=== PATIENT | female | born 1965 | race African-American/Black ===

== ENCOUNTER 2016-11-07 07:48 | Emergency (ER) | payer BC ==
[2016-11-07 08:01] VITALS: BP 135/76; PULSE 99; TEMP 98.5; BMI 30.8
--- NOTE | 2016-11-07 08:34 | PDOC ---
History of Present Illness - General Chief Complaint: Pain Stated Complaint: RIGHT PINKY TOE PAIN Time Seen by Provider: 11/07/16 08:11 History Source: Patient Exam Limitations: No Limitations - History of Present Illness Initial Comments: 11/07/16 08:38 51 yr female with pain to right little toe for one week with swelling to the top of foot and warm to touch yesterday. Pt denies trauma. no fever, history of asthma. Severity: reports: mild Pain Location: reports: lower extremity (right pinky toes, top of foot ) Method of Injury: Yes: unknown Past History - Past Medical History Allergies/Adverse Reactions: Allergies Allergy/AdvReac Type Severity Reaction Status Date / Time No Known Allergies Allergy Verified 11/07/16 07:59 Home Medications: Ambulatory Orders Albuterol 0.083% Nebulizer Ximena [Ventolin 0.083% Nebulizer Soln -] 1 neb NEB Q4H #50 vial 11/02/12 Albuterol Sulfate Inhaler - [Ventolin HFA Inhaler -] 2 inh IH Q4H #1 inh Albuterol 0.083% Nebulizer Ximena [Ventolin 0.083% Nebulizer Soln -] 1 neb NEB QID #20 vial 03/13/13 Tiotropium Morrison [Spiriva] 1 inh PO DAILY 07/31/13 Albuterol Sulfate [Proair Hfa -] 1 - 2 inh PO TID 07/02/14 Ibuprofen [Motrin -] 800 mg PO TID #30 tablet 09/09/15 Cephalexin [Keflex] 250 mg PO QID #28 capsule 11/07/16 Asthma: Yes (DR OLSEN, PULKY) - Surgical History Other Surgical History: 11/07/16 08:41 none - Family Disease History Comment:: 11/07/16 08:41 none - Immunization History Immunization Up to Date: Yes - Psycho/Social/Smoking Cessation Hx Anxiety: No Suicidal Ideation: No Smoking Status: No Smoking History: Never smoked Have you smoked in the past 12 months: No Number of Cigarettes Smoked Daily: 0 Information on smoking cessation initiated: No Hx Alcohol Use: No Drug/Substance Use Hx: No Substance Use Type: None Trauma Specific PMHX - Complaint Specific PMHX Arthritis: No Back Injury: No Neck Injury: No Hx Sacro Iliac Joint Dysfunction: No Review of Systems - Review of Systems Able to Perform ROS?: Yes Is the patient limited Faroese proficient: No Constitutional: No: Symptoms Reported, Unintentional Wgt. Loss HEENTM: No: Symptoms Reported Respiratory: No: Symptoms reported Cardiac (ROS): No: Symptoms Reported ABD/GI: No: Symptoms Reported Musculoskeletal: Yes: Symptoms Reported Integumentary: Yes: Symptoms Reported *Physical Exam - Vital Signs Last Vital Signs Temp Pulse Resp BP Pulse Ox 98.5 F 99 H 20 135/76 100 11/07/16 07:59 11/07/16 07:59 11/07/16 07:59 11/07/16 07:59 11/07/16 07:59 - Physical Exam General Appearance: Yes: Nourished, Appropriately Dressed HEENT: positive: EOMI, RAMYA Respiratory/Chest: positive: Lungs Clear, Normal Breath Sounds Cardiovascular: positive: Regular Rhythm, Regular Rate Musculoskeletal: positive: Normal Inspection Extremity: positive: Normal Capillary Refill, Normal Range of Motion, Tender ( right 5th toe in between 4th and 5th toes tender, no bony tenderness), Swelling (dorsal surface right foot at base of toes with redness, warm to touch, swelling ), Erythema Integumentary: positive: Other (fungal infection, moist macerated skin in between 4th and 5th toes, no evidnece of FB) Neurologic: positive: Fully Oriented, Alert, Normal Mood/Affect, Normal Response , Motor Strength 5/5 Medical Decision Making - Medical Decision Making 11/07/16 08:43 cc: right toe pain with swelling to top of foot no fever, FROM, nv intact, strong DP pulse will treat for fungal infection, early cellulitus wound check in 3 days or return to ER pt and her agree with plan all questions asked and answered before discharge *DC/Admit/Observation/Transfer Diagnosis at time of Disposition: Athlete's foot, left Cellulitis Qualifiers: Site of cellulitis: extremity Site of cellulitis of extremity: lower extremity Laterality: right Qualified Code(s): L03.115 - Cellulitis of right lower limb - Discharge Dispostion Disposition: HOME Condition at time of disposition: Good - Prescriptions Prescriptions: Cephalexin [Keflex] 250 mg PO QID #28 capsule - Referrals Referrals: Andrea Morales MD [Staff Physician] - - Patient Instructions Additional Instructions: keep the foot dry especially in between the toes apply Lamisil powder in between toes as directed take the anitbioitcs as directed for 7 days elevate the foot and you can apply a warm compress to the top fo the foot at the swelling every 3hrs for 15 minutes take motrin (advil, ibuprofen) for pain and inflamation follow with your doctor on Thursday for a follow up visit or with the palliative care specialist listed below Return to ER for any fever, worsening pain, redness streaking up the leg or any other concerns
== END 2016-11-07 08:48 | disposition home or self-care (01) ==
LOC: JERFT 07:48
DX: B35.3 Tinea pedis (principal); L03.115 Cellulitis of right lower limb; J45.909 Unspecified asthma, uncomplicated
CPT/HCPCS: 99281-25

== ENCOUNTER 2021-10-24 17:17 | Emergency (ER) | payer OTHER ==
[2021-10-24 17:21] VITALS: BMI 34.0
[2021-10-24] MEDS ORDERED: ACETAMINOPHEN 1000 MG/100 ML VIAL IVPB ONE (20:13)
[2021-10-24] MEDS ORDERED: ONDANSETRON 4 MG/2 ML VIAL IVPUSH ONE (20:13)
[2021-10-24] MEDS ORDERED: FAMOTIDINE 20 MG/50 ML IVPB 20 MG/50 ML MG IVPB ONE ×2 (20:14→20:42)
[2021-10-24] MEDS ORDERED: LACTATED RINGERS SOLUTION 1000 ML INFUS.BAG IV ONE (20:14)
[2021-10-24] MEDS ORDERED: MAG HYDROX/AL HYDROX/SIMETH 30 ML UNIT-DOSE CUP PO ONE (20:14)
[2021-10-24] MEDS ORDERED: MAG HYDROX/AL HYDROX/SIMETH 30 ML UNIT-DOSE CUP ONE (20:42)
[2021-10-24] MEDS ORDERED: ACETAMINOPHEN INJECTION 100 ML IVPB ONE (20:42)
[2021-10-24] MEDS ORDERED: ONDANSETRON 4 MG/2 ML VIAL ONE (20:42)
[2021-10-24 21:09] VITALS: BP 133/78; PULSE 117; TEMP 98.9
[2021-10-24 21:13] LABS: BASO % 0.2 % (0-2.0); EOS % 0.9 % (0-4.5); HEMATOCRIT 44.6 % (32.4-45.2); HEMOGLOBIN 14.6 GM/dL (10.7-15.3); LYMPH % 10.7 % (8-40); MCH 22.9 pg (25.7-33.7); MCHC 32.6 g/dl (32.0-36.0); MEAN CELL VOLUME 70.2 fl (80-96); MEAN PLT VOLUME 8.5 fl (7.5-11.1); MONO % 5.1 % (3.8-10.2); NEUT % 83.1 % (42.8-82.8); PLATELET COUNT 224 10^3/uL (134-434); RBC 6.36 M/mm3 (3.60-5.2); RDW 15.6 % (11.6-15.6); WHITE BLOOD COUNT 8.1 K/mm3 (4.0-10.0)
[2021-10-24 21:34] LABS: CHLORIDE 107 mmol/L (98-107); SODIUM 138 mmol/L (136-145)
[2021-10-24 21:37] LABS: CALCIUM 8.7 mg/dL (8.5-10.1)
[2021-10-24 21:38] LABS: ALBUMIN 3.5 g/dl (3.4-5.0); ANION GAP 10 MMOL/L (8-16); BLOOD UREA NITROGEN 13.4 mg/dL (7-18); CO2 21 mmol/L (21-32); GLUCOSE,RANDOM 99 mg/dL (74-106); LIPASE 83 U/L (73-393)
[2021-10-24 21:40] LABS: CREATININE 0.8 mg/dL (0.55-1.3); SGOT/AST 22 U/L (15-37)
[2021-10-24 21:41] LABS: SGPT/ALT 26 U/L (13-61)
[2021-10-24 21:42] LABS: BILIRUBIN,TOTAL 0.8 mg/dL (0.2-1); TOT PROT 8.4 g/dl (6.4-8.2)
[2021-10-24 21:43] LABS: ALK PHOS 85 U/L (45-117)
== END 2021-10-24 23:50 | disposition home or self-care (01) ==
LOC: JER 17:17
PROC: 3E033GC Introduction of Other Therapeutic Substance into Peripheral Vein, Percutaneous Approach (ICD-10-PCS; principal; 2021-10-24)
DX: R10.84 Generalized abdominal pain (principal); R11.2 Nausea with vomiting, unspecified
CPT/HCPCS: 36415; 71046-TC-FY; 80053; 82550; 82553; 83690; 84484; 85025; 93005; 93010; 99285-25; J0131

== ENCOUNTER 2023-03-19 21:38 | Emergency (ER) | payer OTHER ==
[2023-03-19 21:44] VITALS: RESP 18; BMI 32.5
[2023-03-19] MEDS ORDERED: LIDOCAINE PATCH REMOVAL MC SCH (22:00)
[2023-03-19] MEDS ORDERED: LIDOCAINE 5% TOPICAL PATCH TP ONE (23:35)
[2023-03-20] MEDS ORDERED: LIDOCAINE 5% TOPICAL PATCH ONE (00:01)
[2023-03-20] MEDS ORDERED: IBUPROFEN 400 MG TABLET (FP) PO ONE ×2 (00:39→01:02)
[2023-03-20] MEDS ORDERED: METHOCARBAMOL 500 MG TABLET PO ONE (00:43)
[2023-03-20] MEDS ORDERED: METHOCARBAMOL 500 MG TABLET ONE (01:02)
[2023-03-20 01:12] VITALS: BP 150/92; PULSE 72; TEMP 98.8
== END 2023-03-20 02:04 | disposition home or self-care (01) ==
LOC: JER 21:38 → JERFT 21:38 → JER 03-20 02:04
DX: M54.6 Pain in thoracic spine (principal)
CPT/HCPCS: 71046-TC-FY; 99283-25